=== PATIENT | female | born 1980 | race Caucasian/White ===

== ENCOUNTER 2018-11-03 12:05 | Outpatient (CLI) | payer OTHER | END 2018-11-03 12:07 | disposition home or self-care (01) | LOC: SONOGRAMA 12:05 | DX: N63.41 Unspecified lump in right breast, subareolar (principal); N60.11 Diffuse cystic mastopathy of right breast; N60.12 Diffuse cystic mastopathy of left breast ==

== ENCOUNTER → 2019-01-29 | Outpatient (CLI) | payer OTHER | END | disposition home or self-care (01) | LOC: NST 14:34 | DX: Z34.83 Encounter for supervision of other normal pregnancy, third trimester (principal) ==

== ENCOUNTER 2019-02-14 14:15 | Outpatient (CLI) | payer OTHER | END 2019-02-14 18:49 | disposition home or self-care (01) | LOC: NST 14:15 | DX: O60.03 Preterm labor without delivery, third trimester (principal) ==

== ENCOUNTER 2019-02-27 15:10 | Inpatient (IN) | payer OTHER ==
[~2019-02-27] VITALS: Ht 165.1 cm; Wt 1.8 kg
[2019-02-27] MEDS ORDERED: PRENATABS RX T1 EACH PO (19:28)
[2019-02-27] MEDS ORDERED: SYNTHROID50 MCG PO (19:28)
[2019-02-27] MEDS ORDERED: INTEGRA F CAPS1 EACH PO (19:29)
== END 2019-03-08 16:06 | disposition home or self-care (01) | DRG 788 ==
LOC: NST 15:10 → OB/GYN 16:27 → LDR 16:27 → OB/GYN 02-28 11:03
PROVIDERS: ADMIT Obstetrics & Gynecology
PROC: 4A1HXCZ Monitoring of Products of Conception, Cardiac Rate, External Approach (ICD-10-PCS; 2019-02-27)
PROC: BY4FZZZ Ultrasonography of Third Trimester, Single Fetus (ICD-10-PCS; 2019-03-02)
PROC: 10D00Z1 Extraction of Products of Conception, Low, Open Approach (ICD-10-PCS; principal; 2019-03-05 13:00)
DX: O82 Encounter for cesarean delivery without indication (principal); O65.5 Obstructed labor due to abnormality of maternal pelvic organs; O34.13 Maternal care for benign tumor of corpus uteri, third trimester; Z3A.34 34 weeks gestation of pregnancy; Z37.0 Single live birth

== ENCOUNTER 2021-03-13 07:15 | Inpatient (IN) | payer OTHER ==
[~2021-03-13] VITALS: Ht 165.1 cm; Wt 3.6 kg
[~2021-03-13 07:15] MED LIST: INTEGRA F CAPS1 EACH PO; PRENATABS RX T1 EACH PO; SYNTHROID50 MCG PO
[2021-03-13] MEDS ORDERED: ATABEX DHA 200200 MG PO (09:11)
== END 2021-03-21 13:57 | disposition home or self-care (01) | DRG 788 ==
LOC: OB/GYN 03-18 07:00 → O/R 03-18 08:00 → SURG-SUITE 03-18 08:00
PROVIDERS: ADMIT Obstetrics & Gynecology; ATTEND Obstetrics & Gynecology
PROC: 4A1HXFZ Monitoring of Products of Conception, Cardiac Rhythm, External Approach (ICD-10-PCS; 2021-03-18)
PROC: 10D00Z1 Extraction of Products of Conception, Low, Open Approach (ICD-10-PCS; principal; 2021-03-18 07:00)
DX: O34.211 Maternal care for low transverse scar from previous cesarean delivery (principal); Z37.0 Single live birth; Z3A.38 38 weeks gestation of pregnancy